=== PATIENT | female | born 1945 | race Two or more races ===

== ENCOUNTER 2019-01-21 13:35 | Emergency (ER) | payer SELFPAY ==
[~2019-01-21] VITALS: Ht 142.2 cm; Wt 89.8 kg
[~2019-01-21 13:35] MED LIST: NKM
--- NOTE | 2019-01-21 13:35 | NUR ---
ED Nurse Note: PT ARRIVED FROM HOME, WITH THE C/O SEIZURE AT HOME LASTED 30 SECS WITNESSED BY FAMILY MEMBER. PT HAS NO ORAL OR HEAD TRAUMA. IV LINE WAS ESTABLISHED; PATENT AND INTACT. BLOOD COLLECTED. PLACED ON HOSP GOWN AND MONITOR.
--- NOTE | 2019-01-21 13:36 | NUR ---
ED Nurse Note: PER DAUGHTER PT ALWAYS HAS AN EPISODE S/P ARGUING WITH OTHER DAUGHTER
--- NOTE | 2019-01-21 13:45 | NUR ---
ED Nurse Note: BLOOD SPECIMEN COLLECTED AND SENT TO LAB. PT UNABLE TO URINATE AT THIS TIME.
[2019-01-21 13:48] VITALS: BP 141/59
[2019-01-21 14:14] LABS: EOSINOPHILS % (AUTO) 1.3 % (0.0-3.0); HEMATOCRIT 39.9 % (37.0-47.0); HEMOGLOBIN 12.8 G/DL (12.0-16.0); LYMPHOCYTES % (AUTO) 22.6 % (20.0-45.0); MEAN CORPUSCULAR VOLUME 89 FL (80-99); MONOCYTES % (AUTO) 7.8 % (1.0-10.0); NEUTROPHILS % (AUTO) 67.2 % (45.0-75.0); PLATELET COUNT 225 K/UL (150-450); RED BLOOD COUNT 4.48 M/UL (4.20-5.40); RED CELL DISTRIBUTION WIDTH 12.8 % (11.6-14.8); WHITE BLOOD COUNT 8.7 K/UL (4.8-10.8)
[2019-01-21 14:18] LABS: ANION GAP 10 mmol/L (5-15); BLOOD UREA NITROGEN 20 mg/dL (7-18); CALCIUM 8.1 MG/DL (8.5-10.1); CARBON DIOXIDE 25 MMOL/L (21-32); CHLORIDE 105 MMOL/L (98-107); CREATININE 0.8 MG/DL (0.55-1.30); POTASSIUM 4.2 MMOL/L (3.5-5.1); SODIUM 140 MMOL/L (136-145)
[2019-01-21 14:23] LABS: ALANINE AMINOTRANSFERASE 27 U/L (12-78); ALBUMIN 3.4 G/DL (3.4-5.0); ALBUMIN/GLOBULIN RATIO 0.7 (1.0-2.7); ALKALINE PHOSPHATASE 93 U/L (46-116); ASPARTATE AMINO TRANSFERASE 24 U/L (15-37); BILIRUBIN,TOTAL 0.3 MG/DL (0.2-1.0)
--- NOTE | 2019-01-21 14:35 | NUR ---
ED Nurse Note: URINE SPECIMEN COLLECTED. SENT TO LABS.
--- NOTE | 2019-01-21 14:43 | Emergency Room Report ---
History of Present Illness General Chief Complaint: Seizure Source: Patient Present Illness HPI 74-year-old female presents ED for evaluation. This post seizure. Occurred today. Witnessed by family. Occurred while sitting in chair. Lasted 30 seconds. Witnessed generalized tonic-clonic shaking. No tongue trauma. No incontinence. Upon arrival patient is alert oriented x3. States she feels well. Denies fevers or chills. Family states that patient does not have a diagnosis of seizures. States that she does have episodes like this whenever she gets into an argument and gets upset. Patient got into an argument earlier today with family member. Does not currently take medication for seizure. No reported fevers or chills. No neck stiffness. No headache. No other aggravating relieving factors. Denies any other associated symptoms Allergies: Coded Allergies: No Known Allergies (Unverified , 01/21/19) Patient History Past Medical History: HTN Past Surgical History: none Pertinent Family History: none Social History: Denies: smoking, alcohol use, drug use Now: No Immunizations: UTD Reviewed Nursing Documentation: PMH: Agreed; PSxH: Agreed Nursing Documentation-PMH Hx Cardiac Problems: No - seizure Hx Hypertension: Yes Review of Systems All Other Systems: negative except mentioned in HPI Physical Exam Vital Signs Date Time Temp Pulse Resp B/P (MAP) Pulse Ox O2 Delivery O2 Flow Rate FiO2 01/21/19 13:30 98.4 82 16 117/65 (82) 98 Room Air Sp02 EP Interpretation: reviewed, normal General Appearance: no apparent distress, alert, GCS 15, non-toxic Head: normocephalic, atraumatic Eyes: bilateral eye normal inspection, bilateral eye PERRL ENT: hearing grossly normal, normal pharynx, no angioedema, normal voice Neck: full range of motion, supple, no meningismus, supple/symm/no masses Respiratory: chest non-tender, lungs clear, normal breath sounds, speaking full sentences Cardiovascular #1: regular rate, rhythm, no edema Cardiovascular #2: 2+ carotid (R), 2+ carotid (L), 2+ radial (R), 2+ radial (L) , 2+ dorsalis pedis (R), 2+ dorsalis pedis (L) Gastrointestinal: normal bowel sounds, non tender, soft, non-distended, no guarding, no rebound Rectal: deferred Genitourinary: normal inspection, no CVA tenderness Musculoskeletal: back normal, normal range of motion, gait/station normal, non- tender Neurologic: alert, motor strength/tone normal, museum educator III-XII nml as tested, oriented x3, sensory intact, responsive, speech normal Psychiatric: judgement/insight normal, memory normal, mood/affect normal, no suicidal/homicidal ideation Reflexes: 3+ bicep (R), 3+ bicep (L), 3+ tricep (R), 3+ tricep (L), 3+ knee (R) , 3+ knee (L) Lymphatic: no adenopathy Medical Decision Making Diagnostic Impression: Primary Impression: Anxiety ER Course Hospital Course 74-year-old F presents to ED status post seizure. AAOx3 on arrival Differential diagnosis includes- breakthrough seizure, alcohol abuse, noncompliance with medication Clinical course Patient placed on stretcher. Initial history and physical I ordered labs, IV fluids, EKG Labs-electrolytes okay, no leukocytosis, hemoglobin/hematocrit stable. ETOH negative EKG - NSR, no acute ischemic changes interpreted by me I discussed findings with family. They witnessed seizure. States that whenever patient gets into an argument and becomes upset she experiences the symptoms. Has been going on for the last few years. PMD is aware. Is currently not on any seizure medications. patient is AAOX3. Resting comfortably. No focal deficits. Is requesting to be discharged. Family at bedside. I will discharge to home. Safe for discharge for close outpatient follow-up. States she has a PMD Diagnosis - anxiety stable and discharged to home. Followup with PMD. Return to ED if symptoms recur or worsen Labs Test 01/21/19 13:50 White Blood Count 8.7 K/UL (4.8-10.8) Red Blood Count 4.48 M/UL (4.20-5.40) Hemoglobin 12.8 G/DL (12.0-16.0) Hematocrit 39.9 % (37.0-47.0) Mean Corpuscular Volume 89 FL (80-99) Mean Corpuscular Hemoglobin 28.6 PG (27.0-31.0) Mean Corpuscular Hemoglobin Concent 32.1 G/DL (32.0-36.0) Red Cell Distribution Width 12.8 % (11.6-14.8) Platelet Count 225 K/UL (150-450) Mean Platelet Volume 6.4 FL (6.5-10.1) Neutrophils (%) (Auto) 67.2 % (45.0-75.0) Lymphocytes (%) (Auto) 22.6 % (20.0-45.0) Monocytes (%) (Auto) 7.8 % (1.0-10.0) Eosinophils (%) (Auto) 1.3 % (0.0-3.0) Basophils (%) (Auto) 1.0 % (0.0-2.0) Sodium Level 140 MMOL/L (136-145) Potassium Level 4.2 MMOL/L (3.5-5.1) Chloride Level 105 MMOL/L (98-107) Carbon Dioxide Level 25 MMOL/L (21-32) Anion Gap 10 mmol/L (5-15) Blood Urea Nitrogen 20 mg/dL (7-18) Creatinine 0.8 MG/DL (0.55-1.30) Estimat Glomerular Filtration Rate mL/min (>60) Glucose Level 136 MG/DL (74-106) Calcium Level 8.1 MG/DL (8.5-10.1) Total Bilirubin 0.3 MG/DL (0.2-1.0) Aspartate Amino Transf (AST/SGOT) 24 U/L (15-37) Alanine Aminotransferase (ALT/SGPT) 27 U/L (12-78) Alkaline Phosphatase 93 U/L (46-116) Total Protein 8.2 G/DL (6.4-8.2) Albumin 3.4 G/DL (3.4-5.0) Globulin 4.8 g/dL Albumin/Globulin Ratio 0.7 (1.0-2.7) Salicylates Level 0.7 ug/mL (2.8-20) Acetaminophen Level < 2 MCG/ML (10-30) Phenytoin (Dilantin) Level < 0.5 ug/mL (10-20) Carbamazepine (Tegretol) Level < 0.5 ug/mL (4.0-12.0) Serum Alcohol < 3 mg/dL EKG Diagnostic Results Rate: normal Rhythm: NSR ST Segments: no acute changes ASA given to the pt in ED: No Rhythm Strip Diag. Results EP Interpretation: yes Rhythm: NSR, no PVC's, no ectopy Last Vital Signs Date Time Temp Pulse Resp B/P (MAP) Pulse Ox O2 Delivery O2 Flow Rate FiO2 01/21/19 13:48 98.4 88 24 141/59 99 Room Air Status: improved Disposition: HOME, SELF-CARE Condition: Stable Dante Landeros MD Jan 21, 2019 14:43
[2019-01-21 14:48] LABS: APPEARANCE,URINE CLEAR; BILIRUBIN, URINE NEGATIVE (NEGATIVE); COLOR,URINE PALE YELLOW; GLUCOSE, URINE (UA) NEGATIVE (NEGATIVE); KETONES,URINE NEGATIVE (NEGATIVE); LEUKOCYTE ESTERASE ,URINE 3+ (NEGATIVE); NITRITE,URINE NEGATIVE (NEGATIVE); PH,URINE 5 (4.5-8.0); PROTEIN,URINE 2+ (NEGATIVE); UROBILINOGEN,URINE NORMAL MG/DL (0.0-1.0)
[2019-01-21 15:02] VITALS: BP 153/93
--- NOTE | 2019-01-21 15:02 | NUR ---
ER DISCHARGE NOTE: Patient is cleared to be discharged per ERMD, pt is aox4, on room air, with stable vital signs. pt was given dc instructions, pt was able to verbalize understanding, pt id band and iv site removed without complications. pt is able to ambulate with steady gait. pt took all belongings. assisted by a family member.
== END 2019-01-21 15:02 | disposition home or self-care (01) ==
LOC: EDBD 13:35 → EMR 14:40
DX: F41.9 Anxiety disorder, unspecified (principal); I10 Essential (primary) hypertension
CPT/HCPCS: 36415; 80053; 80156; 80185; 81003; 85025; 93005; 99284; G0480